=== PATIENT | female | born 1945 | race Caucasian/White ===

== ENCOUNTER 2019-10-14 17:24 | Inpatient (IN) ==
[2019-10-14] MEDS ORDERED: methylPREDNISolone SOD SUC 125 MG/2 ML VIAL IV STA (17:34)
[2019-10-14] MEDS ORDERED: SODIUM CHLORIDE 0.9% 1,000 ML IV STA (17:34)
[2019-10-14] MEDS ORDERED: ALBUTEROL NEB SOLN 5 MG/ML 20 ML/BOTTLE CONT NEB SCH (18:00)
[2019-10-14 18:01] LABS: ABG Oxygen Saturation 98.9 % (95-100); ABG PCO2 61.7 MM HG (35-48); ABG PH 7.323 (7.35-7.45); ABG TCO2 28.5 MMOL/L (23-27); Allen Test Positive; Pt O2 Delivery Device Ventilator
[2019-10-14] MEDS ORDERED: PROMETHAZINE 25 MG/1 ML VIAL IM PRN (18:17)
[2019-10-14] MEDS ORDERED: ALBUTEROL 2.5 MG/3 ML NEB RESP TX PRN (18:17)
[2019-10-14] MEDS ORDERED: MIDAZOLAM 100 MG in SODIUM CHLORIDE 0.9% 80 ML IV PRN (18:17)
[2019-10-14 18:23] LABS: Basophils % 0.2 % (0.0-0.8); Hematocrit 25.2 VOL% (35.7-47.0); Hemoglobin 7.3 GM/DL (12.0-16.0); Immature Granulocytes % 0.9 %; Immature Granulocytes Absolute 0.12 #; Lymphocytes # 0.4 10*3/uL (1.4-4.0); Lymphocytes % 2.7 % (21.3-54.2); Mean Corpuscular Volume 109.1 FL (87-102); Mean Platelet Volume 9.3 FL (9.6-12.0); Monocytes % 3.3 % (1.7-12.7); Neutrophils % 92.9 % (38.7-73.9); Platelet Count 140 T/CUMM (130-400); Red Blood Count 2.31 MC/CUMM (3.8-5.5); Red Cell Distribution Width 16.3 % (9.3-17.3); White Blood Count 12.9 T/CUMM (4-12)
[2019-10-14] MEDS ORDERED: SODIUM CHLORIDE 0.9% 1,000 ML IV SCH (18:30)
[2019-10-14] MEDS ORDERED: NOREPINEPHRINE 8 MG in SODIUM CHLORIDE 0.9% 242 ML IV SCH (18:30)
[2019-10-14 18:34] LABS: INR 2.4; PT Patient Result 25.8 SECS (9.6-12.2); Partial Thromboplastin Time 42.4 SECS (20.8-36.0)
[2019-10-14 18:45] LABS: Apearance,Urine CLOUDY (Clear); Bilirubin,Urine Negative (Negative); Blood, Urine Large mg/dL (Negative); Glucose,Urine (UA) Negative (Negative); Hyaline Casts,Urine 11 /LPF (0-3); Ketones,Urine Negative (Negative); Mucus,Urine Few /LPF (Occasional); Nitrite,Urine Negative (Negative); Protein,Urine 30 MG/DL; RBC,Urine 79 /HPF (0-4); Squamous Epithelial Cell,Urine Few /HPF (0-10); Urine Specific Gravity 1.017 (1.001-1.035); Urine Urobilinogen < 2.0 EU/DL (0.2-1.0); WBC,Urine 321 /HPF (0-6)
[2019-10-14 18:59] LABS: Urine Color Dark Yellow (Yellow)
[2019-10-14] MEDS ORDERED: LEVOFLOXACIN INJ 750 MG in PREMIX 1 EACH IV SCH (19:00)
[2019-10-14 19:06] VITALS: BP 124/69
[2019-10-14] MEDS: ALBUTEROL/IPRATROPIUM 3 ML NEB RESP TX SCH (19:08)
[2019-10-14] MEDS ORDERED: DEXTROSE 10% 250 ML BAG IV PRN (19:12)
[2019-10-14] MEDS ORDERED: GLUCAGON 1 MG VIAL IM PRN (19:12)
[2019-10-14 19:14] LABS: Burr Cells 2+; Lymphocytes 1 % (20-55); Segmented Neutrophils 98 % (50-85); Total Cells Counted 100
[2019-10-14 19:15] LABS: Anisocytosis 1+; Macrocytosis 2+; Platelet Estimate Normal; Poikilocytosis 2+; Polychromasia 1+
[2019-10-14 19:19] LABS: Alanine Aminotransferase < 6 U/L (13-56); Albumin 1.1 G/DL (3.4-5.0); Alkaline Phosphatase 41 U/L (45-117); Aspartate Amino Transferase 9 U/L (0-37); Blood Urea Nitrogen 8 MG/DL (7-18); Estimated Glom Filtration Rate 149 ML/MIN; Glucose 81 MG/DL (74-106)
[2019-10-14 19:20] LABS: Troponin I 0.103 NG/ML (0.00-0.045)
[2019-10-14 19:24] LABS: Calcium < 5.0 MG/DL (8.5-10.1)
[2019-10-14] MEDS ORDERED: AZTREONAM 2,000 MG in SODIUM CHLORIDE 0.9% 100 ML IV SCH (20:00)
[2019-10-14] MEDS ORDERED: FLUCONAZOLE INJ 100 MG in IV BAG 1 EACH IV SCH (20:00)
[2019-10-14 20:07] LABS: Calcium 8.3 MG/DL (8.5-10.1); Osmolality,Calculated 284.3 MOS/KG (273-304)
[2019-10-14] MEDS ORDERED: PANTOPRAZOLE 40 MG VIAL IV SCH (21:00)
[2019-10-14] MEDS ORDERED: VANCOMYCIN INJ 1,500 MG in SODIUM CHLORIDE 0.9% 500 ML IV SCH (22:00)
[2019-10-14] MEDS ORDERED: NITROPRUSSIDE 50 MG/2 ML VIAL ONE (22:51)
[2019-10-14] MEDS ORDERED: PHENYLEPHRINE DRIP 0 MG/0 ML PREMIX IV ONE (22:51)
[2019-10-14] MEDS ORDERED: SODIUM BICARBONATE 50 MEQ/50 ML VIAL IV ONE (22:51)
[2019-10-14] MEDS ORDERED: CALCIUM CHLORIDE 1,000 MG/10 ML SYRINGE IV ONE (22:52)
[2019-10-14] MEDS ORDERED: ATROPINE 1 MG/10 ML SYRINGE ONE (22:52)
[2019-10-14] MEDS ORDERED: ALBUMIN 5% 12.5 GM/250 ML VIAL IV ONE (22:52)
[2019-10-15] MEDS: ALBUTEROL/IPRATROPIUM 3 ML NEB RESP TX SCH (00:51)
[2019-10-15] MEDS ORDERED: fentaNYL INJ 1,250 MCG in SODIUM CHLORIDE 0.9% 225 ML IV PRN (01:07)
[2019-10-15] MEDS ORDERED: SUCCINYLCHOLINE 200 MG/10 ML VIAL IV ONE (01:09)
[2019-10-15] MEDS ORDERED: PHENYLEPHRINE DRIP 40 MG/250 ML PREMIX IV PRN (01:09)
[2019-10-15] MEDS ORDERED: methylPREDNISolone SOD SUC 125 MG/2 ML VIAL IV SCH (02:00)
[2019-10-15] MEDS ORDERED: NOREPINEPHRINE 4 MG/4 ML VIAL IV ONE (03:40)
[2019-10-15] MEDS ORDERED: LEVOTHYROXINE 100 MCG VIAL IV SCH (06:30)
[2019-10-15] MEDS ORDERED: WARFARIN 1 MG TABLET PO SCH (18:00)
== END 2019-10-15 03:46 | disposition hospice, home (50) | DRG 871 ==
LOC: N.ED 17:24 → N.EDINP 18:17 → N.CC 19:06 → UNDODISIN 10-15 03:46
PROVIDERS: ADMIT Phlebology; ATTEND Phlebology